=== PATIENT | female | born 1985 | race Caucasian/White ===

== ENCOUNTER → 2016-11-09 | Outpatient (REF) | payer OTHER ==
[2016-11-09 14:56] LABS: ALBUMIN/GLOBULIN RATIO 1.33 (1.00-1.93); ALKALINE PHOSPHATASE 34 U/L (45-117); ALT/SGPT 28 U/L (12-78); ANION GAP 10 MEQ/L (8-16); AST/SGOT 11 U/L (15-37); BILIRUBIN,TOTAL 0.2 MG/DL (0.2-1.0); BLOOD UREA NITROGEN 10 MG/DL (7-18); CARBON DIOXIDE LEVEL 25 MEQ/L (21-32); CHLORIDE LEVEL 105 MEQ/L (98-107); CREATININE FOR GFR 0.58 MG/DL (0.55-1.02); FREE T4 0.79 NG/DL (0.76-1.46); GLOMERULAR FILTRATION RATE > 60.0 (>60); GLUCOSE, FASTING 96 MG/DL (70-105); POTASSIUM SERUM 4.7 MEQ/L (3.5-5.1); SODIUM LEVEL 140 MEQ/L (136-145)
== END ==
LOC: M SFHCPLAZ 11-03 09:33
PROVIDERS: ATTEND Nurse Practitioner Family
DX: R00.2 Palpitations (principal)

== ENCOUNTER → 2016-11-09 | Outpatient (CLI) | payer OTHER | LOC: M SMT 10:59 | PROVIDERS: ATTEND Advanced Practice Midwife | DX: O02.1 Missed abortion (principal) ==

== ENCOUNTER → 2016-11-19 | Outpatient (CLI) | payer OTHER | LOC: M SMT 15:47 | PROVIDERS: ATTEND Advanced Practice Midwife | DX: O02.1 Missed abortion (principal) ==

== ENCOUNTER → 2016-11-26 | Outpatient (CLI) | payer OTHER | LOC: M SMT 15:00 | PROVIDERS: ATTEND Advanced Practice Midwife | DX: O02.1 Missed abortion (principal) ==

== ENCOUNTER → 2016-11-26 | Outpatient (REF) | payer OTHER | LOC: M SFHCPLAZ 08:52 | PROVIDERS: ATTEND Nurse Practitioner Family | DX: R00.2 Palpitations (principal); Z53.9 Procedure and treatment not carried out, unspecified reason ==

== ENCOUNTER → 2016-12-03 | Outpatient (CLI) | payer OTHER | LOC: M SMT 08:12 | PROVIDERS: ATTEND Advanced Practice Midwife | DX: O02.1 Missed abortion (principal) ==

== ENCOUNTER → 2016-12-17 | Outpatient (REF) | payer OTHER | LOC: M LAB REF 16:56 | PROVIDERS: ATTEND Specialist | DX: Z11.51 Encounter for screening for human papillomavirus (HPV) (principal); R87.610 Atypical squamous cells of undetermined significance on cytologic smear of cervix (ASC-US) ==

== ENCOUNTER 2017-10-03 22:22 | Emergency (ER) | payer OTHER ==
[~2017-10-03] VITALS: Ht 154.9 cm; Wt 82.7 kg
[2017-10-03] MEDS ORDERED: LEXA1TAB PO (22:40)
[2017-10-03] MEDS ORDERED: XANA0.5T PO (22:40)
[2017-10-04 00:09] LABS: CONTROL LINE UCG INT CTR LINE PRESENT
[2017-10-04] MEDS ORDERED: NS 1,000 ML IV ONE (00:45)
[2017-10-04] MEDS ORDERED: KETOROLAC 30 MG/ML VIAL (J1885) IV ONE (00:45)
[2017-10-04 01:12] LABS: BASO % 0.3 % (0.0-1.0); EOS # 0.3 10^3/uL (0.0-0.50); EOS % 2.7 % (0.0-3.0); IMMATURE GRANULOCYTE % 0.3 % (0-0); LYMPH % 47.6 % (24.0-44.0); MEAN CORPUSCULAR HEMOGLOBIN 29.8 pg (27.0-33.0); MEAN CORPUSCULAR HGB CONC 34.1 g/dl (32.0-36.5); MEAN CORPUSCULAR VOLUME 87.4 fl (80.0-96.0); MONO # 0.6 10^3/uL (0.0-0.8); MONO % 6.3 % (0.0-5.0); NEUTROPHILS # 4.2 10^3/uL (1.8-7.7); NEUTROPHILS % 42.8 % (36.0-66.0); PLATELET COUNT, AUTOMATED 278 10^3/uL (150-450); RED CELL DISTRIBUTION WIDTH 11.7 % (11.5-14.5); WHITE BLOOD COUNT 9.8 10^3/uL (4.0-10.0)
[2017-10-04 01:16] LABS: LYMPH # 4.7 10^3/uL (1.5-4.5)
[2017-10-04 01:32] LABS: ALBUMIN/GLOBULIN RATIO 1.18 (1.00-1.93); ALKALINE PHOSPHATASE 35 U/L (45-117); ALT/SGPT 19 U/L (12-78); ANION GAP 4 MEQ/L (8-16); AST/SGOT 11 U/L (7-37); BILIRUBIN,DIRECT < 0.1 MG/DL (0.0-0.2); BILIRUBIN,TOTAL 0.3 MG/DL (0.2-1.0); BLOOD UREA NITROGEN 9 MG/DL (7-18); CALCIUM LEVEL 9.6 MG/DL (8.5-10.1); CARBON DIOXIDE LEVEL 32 MEQ/L (21-32); CHLORIDE LEVEL 102 MEQ/L (98-107); CREATININE FOR GFR 0.55 MG/DL (0.55-1.02); GLOMERULAR FILTRATION RATE > 60.0 (>60); GLUCOSE, FASTING 77 MG/DL (70-105); POTASSIUM SERUM 3.9 MEQ/L (3.5-5.1); SODIUM LEVEL 138 MEQ/L (136-145); TOTAL PROTEIN 7.4 GM/DL (6.4-8.2)
[2017-10-04 01:48] VITALS: BP 122/74
--- NOTE | 2017-10-04 05:47 | ECGEPIP ---
Stationary ECG Study [facility] - ED Test Date: 2017-10-03 Pat Name: KELSEA ESTRADALAND Department: Room: - Gender: F [employer] Service Technician: rn : 1985 Requested By: MARIA GUADALUPE Toney Order Number: [id number] Reading MD: Tony Prasad Measurements Intervals Bradley Rate: 102 P: 38 VA: 184 QRS: 60 QRSD: 84 T: 42 QT: 338 QTc: 442 Interpretive Statements SINUS TACHYCARDIA NO PRIORS FOR COMPARISON Electronically Signed On 10-04-2017 5:47:31 EST by Tony Prasad
== END 2017-10-04 02:14 | disposition left against medical advice (07) ==
LOC: M ED 22:22
DX: R10.2 Pelvic and perineal pain (principal); R35.0 Frequency of micturition; R00.0 Tachycardia, unspecified; F17.210 Nicotine dependence, cigarettes, uncomplicated; Z79.899 Other long term (current) drug therapy
CPT/HCPCS: 80048; 80076; 81001; 83690; 84703; 85025; 87086; 93000; 96374; 99284; J1885

== ENCOUNTER → 2017-10-05 | Outpatient (REF) | payer OTHER ==
[~2017-10-05] MED LIST: LEXA1TAB PO; XANA0.5T PO
== END ==
LOC: M SFHCLERA 18:34
PROVIDERS: ATTEND Physician Assistant
DX: R10.2 Pelvic and perineal pain (principal)

== ENCOUNTER → 2017-10-05 | Outpatient (CLI) | payer OTHER ==
--- NOTE | 2017-10-05 19:19 | REP ---
Clinical: Suprapubic abdominal pain. Technique: Two supine views of the abdomen and pelvis. Findings: Nonspecific bowel gas pattern. Moderate fecal stasis and constipation suggested and correlation is recommended. No organomegaly. Skeletal structures are normal for age. Impression: Moderate fecal stasis and possible constipation. Signed by Venkat Melissa MD 10/05/2017 07:10 P
== END ==
LOC: M LRY 18:35
PROVIDERS: ATTEND Physician Assistant
DX: R10.2 Pelvic and perineal pain (principal)

== ENCOUNTER → 2017-11-23 | Outpatient (CLI) | payer OTHER ==
[2017-11-23 11:24] LABS: BASO % 0.3 % (0.0-1.0); EOS # 0.2 10^3/uL (0.0-0.50); HEMATOCRIT 38.3 % (36.0-47.0); HEMOGLOBIN 12.9 g/dl (12.0-16.0); IMMATURE GRANULOCYTE % 0.3 % (0-0); LYMPH # 2.4 10^3/uL (1.5-4.5); LYMPH % 29.7 % (24.0-44.0); MEAN CORPUSCULAR HEMOGLOBIN 29.2 pg (27.0-33.0); MEAN CORPUSCULAR HGB CONC 33.7 g/dl (32.0-36.5); MEAN CORPUSCULAR VOLUME 86.7 fl (80.0-96.0); MONO # 0.4 10^3/uL (0.0-0.8); MONO % 4.7 % (0.0-5.0); PLATELET COUNT, AUTOMATED 314 10^3/uL (150-450); RED BLOOD COUNT 4.42 10^6/uL (4.00-5.40); RED CELL DISTRIBUTION WIDTH 12.1 % (11.5-14.5); WHITE BLOOD COUNT 7.9 10^3/uL (4.0-10.0)
[2017-11-23 12:01] LABS: HBsAg Prenatal NEGATIVE (NEGATIVE); RUBELLA IgG QUALITATIVE IMMUNE (IMMUNE)
[2017-11-23 12:29] LABS: HEPATITIS C VIRUS ABY INDEX 0.1 INDEX (<0.8)
[2017-11-23 12:29] LABS: HIV 1&2 SCREEN CENTAUR NEGATIVE (NEGATIVE)
[2017-11-23 15:56] LABS: CHLAMYDIA DNA AMPLIFICATION NEGATIVE (NEGATIVE); GC DNA AMPLIFICATION NEGATIVE (NEGATIVE)
== END ==
LOC: M LRY 08:25
DX: Z36.89 Encounter for other specified antenatal screening (principal); Z3A.08 8 weeks gestation of pregnancy
CPT/HCPCS: 86762

== ENCOUNTER → 2018-01-02 | Outpatient (REF) | payer OTHER | LOC: M LAB REF 12:52 | DX: Z34.82 Encounter for supervision of other normal pregnancy, second trimester (principal) ==

== ENCOUNTER → 2018-01-23 | Outpatient (CLI) | payer OTHER | LOC: M RAD 08:47 | DX: Z34.82 Encounter for supervision of other normal pregnancy, second trimester (principal) | CPT/HCPCS: 76811 ==

== ENCOUNTER → 2018-02-07 | Outpatient (CLI) | payer OTHER ==
[~2018-02-07] MED LIST changes: +CONRAY-43 43% 50ML VIAL (Q9960) As Ordered; -LEXA1TAB PO; +PROHANCE 279.3MG/ML 5ML VIAL (A9576) As Ordered; -XANA0.5T PO
== END ==
LOC: M RAD 16:43
DX: Z36.9 Encounter for antenatal screening, unspecified (principal); Z3A.20 20 weeks gestation of pregnancy
CPT/HCPCS: Q9960

== ENCOUNTER → 2018-03-16 | Outpatient (CLI) | payer OTHER ==
[2018-03-16 14:02] LABS: HEMATOCRIT 37.2 % (36.0-47.0); HEMOGLOBIN 12.3 g/dl (12.0-15.5); MEAN CORPUSCULAR HEMOGLOBIN 30.1 pg (27.0-33.0); MEAN CORPUSCULAR HGB CONC 33.1 g/dl (32.0-36.5); MEAN CORPUSCULAR VOLUME 91.2 fl (80.0-96.0); PLATELET COUNT, AUTOMATED 223 10^3/uL (150-450); RED BLOOD COUNT 4.08 10^6/uL (4.00-5.40); RED CELL DISTRIBUTION WIDTH 13.2 % (11.5-14.5); WHITE BLOOD COUNT 10.5 10^3/uL (4.0-10.0)
[2018-03-16 14:28] LABS: GLUCOSE CHALLENGE TEST 1 HOUR 120 MG/DL (LESS THAN 140)
[2018-03-17 08:53] LABS: RH ONLY RHOGAM 1 1
== END ==
LOC: M SMT 08:19
DX: Z34.82 Encounter for supervision of other normal pregnancy, second trimester (principal)
CPT/HCPCS: 82950

== ENCOUNTER → 2018-04-20 | Outpatient (REF) | payer OTHER | LOC: M SFHCPLAZ 14:14 | DX: R06.09 Other forms of dyspnea (principal) ==

== ENCOUNTER → 2018-05-16 | Outpatient (CLI) | payer OTHER | LOC: M LRY 08:28 | DX: Z34.83 Encounter for supervision of other normal pregnancy, third trimester (principal); Z3A.35 35 weeks gestation of pregnancy | CPT/HCPCS: 76811 ==

== ENCOUNTER → 2018-05-30 | Outpatient (REF) | payer OTHER | LOC: M LAB REF 12:53 | DX: Z34.83 Encounter for supervision of other normal pregnancy, third trimester (principal); Z3A.00 Weeks of gestation of pregnancy not specified | CPT/HCPCS: 87081 ==

== ENCOUNTER 2018-06-08 02:56 | Outpatient (CLI) | payer OTHER | END 2018-06-08 05:53 | disposition home or self-care (01) | LOC: M LDO 02:56 | DX: O47.1 False labor at or after 37 completed weeks of gestation (principal); Z3A.38 38 weeks gestation of pregnancy | CPT/HCPCS: 59025 ==

== ENCOUNTER → 2018-06-13 | Outpatient (CLI) | payer OTHER | LOC: M RAD 13:20 | DX: O26.843 Uterine size-date discrepancy, third trimester (principal); Z3A.38 38 weeks gestation of pregnancy | CPT/HCPCS: 76819 ==

== ENCOUNTER 2018-06-17 15:22 | Outpatient (CLI) | payer OTHER ==
[2018-06-17 16:32] LABS: TOTAL PROTEIN,RANDOM URINE < 5.0 MG/DL (0.0-12.0)
[2018-06-17 16:32] LABS: CREATININE,RANDOM URINE < 13.0 MG/DL
[2018-06-17 16:47] LABS: HEMATOCRIT 36.5 % (36.0-47.0); HEMOGLOBIN 12.1 g/dl (12.0-15.5); MEAN CORPUSCULAR HEMOGLOBIN 28.3 pg (27.0-33.0); MEAN CORPUSCULAR HGB CONC 33.2 g/dl (32.0-36.5); MEAN CORPUSCULAR VOLUME 85.3 fl (80.0-96.0); PLATELET COUNT, AUTOMATED 218 10^3/uL (150-450); RED BLOOD COUNT 4.28 10^6/uL (4.00-5.40); RED CELL DISTRIBUTION WIDTH 13.5 % (11.5-14.5); WHITE BLOOD COUNT 9.3 10^3/uL (4.0-10.0)
[2018-06-17 17:06] LABS: ALT/SGPT 14 U/L (12-78); AST/SGOT 11 U/L (7-37); BILIRUBIN,TOTAL 0.2 MG/DL (0.2-1.0); CREATININE FOR GFR 0.55 MG/DL (0.55-1.30); GLOMERULAR FILTRATION RATE > 60.0 (>60); LDH LACTATE DEHYDROGENASE 166 U/L (84-246); URIC ACID 4.9 MG/DL (2.6-6.0)
== END 2018-06-17 17:30 | disposition home or self-care (01) ==
LOC: M LDO 15:22
DX: O26.893 Other specified pregnancy related conditions, third trimester (principal); R60.0 Localized edema; R03.0 Elevated blood-pressure reading, without diagnosis of hypertension; Z3A.39 39 weeks gestation of pregnancy
CPT/HCPCS: 59025

== ENCOUNTER 2018-06-20 17:05 | Inpatient (IN) | payer OTHER ==
[2018-06-20] MEDS: miSOPROStol 50 MCG 1/2 TAB (S0191) SL ×2 (18:15→22:56)
[2018-06-20 18:16] LABS: HEMATOCRIT 35.3 % (36.0-47.0); HEMOGLOBIN 11.8 g/dl (12.0-15.5); MEAN CORPUSCULAR HEMOGLOBIN 28.2 pg (27.0-33.0); MEAN CORPUSCULAR HGB CONC 33.4 g/dl (32.0-36.5); MEAN CORPUSCULAR VOLUME 84.4 fl (80.0-96.0); PLATELET COUNT, AUTOMATED 245 10^3/uL (150-450); RED BLOOD COUNT 4.18 10^6/uL (4.00-5.40); RED CELL DISTRIBUTION WIDTH 13.5 % (11.5-14.5); WHITE BLOOD COUNT 10.3 10^3/uL (4.0-10.0)
[2018-06-20] MEDS: LR 1,000 ML IV (18:16)
[2018-06-21] MEDS: PROMETHAZINE INJ 25 MG/ML VIAL (J2550) IV (03:12)
[2018-06-21] MEDS: LR 1,000 ML IV ×2 (03:13→14:25)
[2018-06-21] MEDS: BUTORPHANOL 2 MG/ML INJ (J0595) IV (03:13)
[2018-06-21] MEDS: miSOPROStol 50 MCG 1/2 TAB (S0191) SL ×2 (03:14→09:58)
[2018-06-21] MEDS: ACETAMINOPHEN 500 MG TAB PO (10:34)
[2018-06-21] MEDS: LACTATED RINGER'S 1000 ML IV (12:05)
[2018-06-21] MEDS ORDERED: FENTANYL 2MCG/ML ROPIVACAINE 0.2% IN 0.9% NACL 200ML IVBAG As Ordered (12:21)
[2018-06-21] MEDS ORDERED: LACTATED RINGER'S 1000 ML IV (14:00)
[2018-06-21] MEDS ORDERED: ePHEDrine SULFATE 25 MG/5 ML(5MG/ML) SYRINGE IV (14:00)
[2018-06-21] MEDS ORDERED: FENTANYL/ROPIVACAINE/NACL BAG 200 ML EPIDURAL (14:00)
[2018-06-21] MEDS ORDERED: EPIDURAL/PCA KEYS XX (14:00)
[2018-06-21] MEDS ORDERED: diphenhydrAMINE INJ 50MG/ML VIAL (J1200) IV (14:00)
[2018-06-21] MEDS ORDERED: EPIDURAL COMMENT XX (14:00)
[2018-06-21] MEDS ORDERED: NALOXONE INJ 0.4 MG/1 ML VIAL (J2310) IV (14:00)
[2018-06-21] MEDS ORDERED: REFRIGERATOR IV KEYS XX (14:00)
[2018-06-21] MEDS: OXYTOCIN DRIP 30 UNITS in APPROPRIATE DILUENT 1 EA IV ×2 (14:13→22:41)
[2018-06-21] MEDS: ONDANSETRON 4MG/2ML VIAL (J2405) IV (18:23)
[2018-06-21] MEDS ORDERED: METHYLERGONOVINE MALEATE 0.2 MG TAB PO (21:15)
[2018-06-21] MEDS ORDERED: MEASLES,MUMPS,RUBELLA VACCINE INJ (MMR-II) (90707) SC (21:15)
[2018-06-21] MEDS ORDERED: ONDANSETRON 4MG/2ML VIAL (J2405) IV (21:15)
[2018-06-21] MEDS ORDERED: DIBUCAINE 1% OINTMENT 30GM TOP (21:15)
[2018-06-21] MEDS: IBUPROFEN 800 MG TAB PO (23:17)
[2018-06-22] MEDS: ACETAMINOPHEN 500 MG TAB PO ×3 (04:11→20:16)
[2018-06-22] MEDS: PRENATAL VITAMINS CHEWABLE TABLET PO (08:32)
[2018-06-22] MEDS: IBUPROFEN 800 MG TAB PO ×2 (08:32→18:48)
[2018-06-22 11:41] LABS: FETAL SCREEN PROF. 1 1
[2018-06-22] MEDS: RHOGAM 300 MCG (1500 IU) INJ (J2790) IM (12:19)
[2018-06-22] MEDS: DOCUSATE SODIUM 100 MG CAP PO (20:16)
[2018-06-23] MEDS: IBUPROFEN 800 MG TAB PO (04:50)
[2018-06-23] MEDS: PRENATAL VITAMINS CHEWABLE TABLET PO (08:43)
[2018-06-23] MEDS: ACETAMINOPHEN 500 MG TAB PO (08:44)
== END 2018-06-23 10:55 | disposition home or self-care (01) | DRG 560 ==
LOC: M LDI 17:05 → M OBS 06-21 22:50
PROVIDERS: Obstetrics & Gynecology
PROC: 10E0XZZ Delivery of Products of Conception, External Approach (ICD-10-PCS; principal; 2018-06-21)
DX: O80 Encounter for full-term uncomplicated delivery (principal); Z37.0 Single live birth; Z3A.39 39 weeks gestation of pregnancy

== ENCOUNTER → 2018-11-04 | Outpatient (REF) | payer OTHER ==
[~2018-11-04] MED LIST changes: -CONRAY-43 43% 50ML VIAL (Q9960) As Ordered; +IBUP-1022 PO; +LEXA1TAB PO; +MAPA500T2 PO; +PREN1CHW PO; -PROHANCE 279.3MG/ML 5ML VIAL (A9576) As Ordered; +XANA0.5T PO
== END ==
LOC: M SFHCLERA 13:22
PROVIDERS: ATTEND Physician Assistant
DX: N89.8 Other specified noninflammatory disorders of vagina (principal)

== ENCOUNTER → 2018-11-21 | Outpatient (CLI) | payer OTHER ==
--- NOTE | 2018-11-22 04:32 | REP ---
Clinical: IUD placement . Technique: Transabdominal pelvic ultrasound followed by transvaginal examination for better evaluation of the endometrium and adnexa with color Doppler evaluation of the ovaries. Findings: Bladder is unremarkable and measures 3.6 x 2.2 x 6.3 cm . Normal anteverted uterus measures 8.5 x 4.1 x 6.2 cm . The endometrial complex measures 13 mm thickness. No discrete uterine or endometrial abnormalities are appreciated. IUD identified in satisfactory position. Bilateral ovaries are normal in appearance and vascularity without evidence for torsion. Right ovary measures 3.4 x 2.8 x 3.0 cm ; R I = 0.51 . Left ovary measures 4.2 x 3.2 x 3.1 cm ; R I = 0.56 . No pelvic fluid or adnexal mass lesions . Impression: 1. Normal pelvic ultrasound. IUD in satisfactory position. Electronically Signed by Venkat Melissa MD 11/22/2018 04:23 A
== END ==
LOC: M RAD 17:25
PROVIDERS: ATTEND Specialist
DX: N93.9 Abnormal uterine and vaginal bleeding, unspecified (principal); Z97.5 Presence of (intrauterine) contraceptive device

== ENCOUNTER → 2018-12-14 | Outpatient (REF) | payer OTHER | LOC: M SFHCLERA 10:03 | PROVIDERS: ATTEND Physician Assistant | DX: N39.0 Urinary tract infection, site not specified (principal) ==

== ENCOUNTER → 2019-03-19 | Outpatient (REF) | payer OTHER ==
[2019-03-19 20:41] LABS: BASO % 0.3 % (0.0-1.0); EOS # 0.3 10^3/uL (0.0-0.50); EOS % 2.7 % (0.0-3.0); HEMATOCRIT 47.1 % (36.0-47.0); HEMOGLOBIN 15.5 g/dl (12.0-15.5); LYMPH # 3.2 10^3/uL (1.5-4.5); LYMPH % 34.5 % (24.0-44.0); MEAN CORPUSCULAR HEMOGLOBIN 29.3 pg (27.0-33.0); MEAN CORPUSCULAR HGB CONC 32.9 g/dl (32.0-36.5); MONO # 0.6 10^3/uL (0.0-0.8); MONO % 6.9 % (0.0-5.0); NEUTROPHILS % 55.2 % (36.0-66.0); PLATELET COUNT, AUTOMATED 314 10^3/uL (150-450); RED BLOOD COUNT 5.29 10^6/uL (4.00-5.40); WHITE BLOOD COUNT 9.1 10^3/uL (4.0-10.0)
[2019-03-19 20:54] LABS: ALBUMIN 4.5 GM/DL (3.2-5.2); ALT/SGPT 25 U/L (12-78); BILIRUBIN,TOTAL 0.2 MG/DL (0.2-1.0); BLOOD UREA NITROGEN 8 MG/DL (7-18); CALCIUM LEVEL 9.9 MG/DL (8.5-10.1); CARBON DIOXIDE LEVEL 27 MEQ/L (21-32); CHLORIDE LEVEL 107 MEQ/L (98-107); CREATININE FOR GFR 0.64 MG/DL (0.55-1.30); GLOMERULAR FILTRATION RATE > 60.0 (>60); GLUCOSE, FASTING 95 MG/DL (70-100); POTASSIUM SERUM 4.5 MEQ/L (3.5-5.1); SODIUM LEVEL 141 MEQ/L (136-145); TOTAL PROTEIN 7.7 GM/DL (6.4-8.2)
== END ==
LOC: M SFHCLERA 15:09
PROVIDERS: ATTEND Nurse Practitioner Family
DX: F41.1 Generalized anxiety disorder (principal)

== ENCOUNTER → 2019-05-24 | Outpatient (REF) | payer OTHER ==
[2019-05-29 14:41] LABS: HPV HYBRID CAPTURE II Negative (Negative)
== END ==
LOC: M LAB REF 13:16
PROVIDERS: ATTEND Advanced Practice Midwife
DX: Z12.4 Encounter for screening for malignant neoplasm of cervix (principal); B37.3 Candidiasis of vulva and vagina

== ENCOUNTER 2019-07-20 18:35 | Emergency (ER) | payer BC, OTHER ==
[~2019-07-20] VITALS: Ht 154.9 cm; Wt 92.7 kg
[2019-07-20 18:35] VITALS: BP 128/75
[2019-07-20] MEDS ORDERED: KETO10TAB PO (19:36)
[2019-07-20] MEDS ORDERED: KETOROLAC TROMETHAMINE 10 MG TAB PO ONE (19:45)
--- NOTE | 2019-07-20 19:50 | REP ---
HISTORY: Trauma. FINDINGS: The joint spaces are symmetric and relatively well maintained. There is no evidence of acute fracture or destructive osseous lesion. IMPRESSION: Negative. Electronically Signed by Jose Matos DO 07/21/2019 09:46 A
== END 2019-07-20 19:43 | disposition home or self-care (01) ==
LOC: M ED 18:35
DX: M79.672 Pain in left foot (principal)

== ENCOUNTER 2019-10-19 10:32 | Day surgery (SDC) | payer BC ==
[~2019-10-19] VITALS: Ht 154.9 cm; Wt 94.3 kg
[~2019-10-19 10:32] MED LIST changes: +ACETAMINOPHEN 1000MG 100ML IV BTL (OFIRMEV) (J0131 PER 10MG) As Ordered ONE; +KETO10TAB PO; +KETOROLAC 60 MG/2 ML VIAL (J1885) As Ordered ONE; +LEXA1TAB2 PO; +LIDOCAINE 2% INJ 100 MG/5 ML SDV (FOR ANES.) As Ordered ONE; +LR 1,000 ML IV ONE; +MIDAZOLAM INJ 2 MG/2 ML VIAL (J2250) As Ordered ONE; +MIRE1IUD IU; +ONDANSETRON 4MG/2ML VIAL (J2405) As Ordered ONE; +PROPOFOL 200 MG/20 ML VIAL As Ordered ONE; +ROCURONIUM BROMIDE 50 MG/5 ML VIAL As Ordered ONE; +SUGAMMADEX SODIUM 500 MG/5 ML VIAL (BRIDION) As Ordered ONE; +dexameTHASONE 4 MG/ML 1ML VIAL (J1100) As Ordered ONE; +fentaNYL 100 MCG/2 ML INJECTION (J3010) As Ordered ONE
[2019-10-19 11:12] LABS: HEMATOCRIT 48.4 % (36.0-47.0); HEMOGLOBIN 16.4 g/dl (12.0-15.5); MEAN CORPUSCULAR HEMOGLOBIN 29.5 pg (27.0-33.0); MEAN CORPUSCULAR HGB CONC 33.9 g/dl (32.0-36.5); MEAN CORPUSCULAR VOLUME 87.2 fl (80.0-96.0); PLATELET COUNT, AUTOMATED 283 10^3/uL (150-450); RED BLOOD COUNT 5.55 10^6/uL (4.00-5.40); WHITE BLOOD COUNT 10.6 10^3/uL (4.0-10.0)
[2019-10-19 11:43] LABS: HCG, SERUM QUALITATIVE NEGATIVE (NEGATIVE)
[2019-10-19] MEDS ORDERED: BUPIVACAINE HCL 0.25% 30 ML VIAL As Ordered ONE (13:16)
[2019-10-19] MEDS ORDERED: IBUP80TA PO (13:55)
[2019-10-19] MEDS ORDERED: OXYC1TAB23 PO (13:56)
[2019-10-19] MEDS ORDERED: fentaNYL 100 MCG/2 ML INJECTION (J3010) As Ordered ONE (14:08)
[2019-10-19] MEDS: fentaNYL 100 MCG/2 ML INJECTION (J3010) IV PRN ×4 (14:10→14:35)
[2019-10-19] MEDS ORDERED: ONDANSETRON 4MG/2ML VIAL (J2405) IV PRN (14:30)
[2019-10-19] MEDS ORDERED: oxyCODONE 5MG TAB PO PRN (14:30)
[2019-10-19] MEDS ORDERED: LR 1,000 ML IV SCH ×2 (14:30)
[2019-10-19 15:15] VITALS: BP 120/83
== END 2019-10-19 15:43 | disposition home or self-care (01) ==
LOC: M SDC 10:32
PROVIDERS: ATTEND Obstetrics & Gynecology
DX: Z30.2 Encounter for sterilization (principal); Z30.432 Encounter for removal of intrauterine contraceptive device; F41.9 Anxiety disorder, unspecified; Z79.899 Other long term (current) drug therapy
CPT/HCPCS: 36415; 58301; 58661; 84703; 85027; 86850; 86900; 86901; 88302; J0131; J1100; J1885; J2250; J2405; J3010

== ENCOUNTER → 2019-11-18 | Outpatient (REF) | payer BC ==
[~2019-11-18] MED LIST changes: -ACETAMINOPHEN 1000MG 100ML IV BTL (OFIRMEV) (J0131 PER 10MG) As Ordered ONE; +IBUP80TA PO; -KETOROLAC 60 MG/2 ML VIAL (J1885) As Ordered ONE; -LIDOCAINE 2% INJ 100 MG/5 ML SDV (FOR ANES.) As Ordered ONE; -LR 1,000 ML IV ONE; -MIDAZOLAM INJ 2 MG/2 ML VIAL (J2250) As Ordered ONE; -ONDANSETRON 4MG/2ML VIAL (J2405) As Ordered ONE; +OXYC1TAB23 PO; -PROPOFOL 200 MG/20 ML VIAL As Ordered ONE; -ROCURONIUM BROMIDE 50 MG/5 ML VIAL As Ordered ONE; -SUGAMMADEX SODIUM 500 MG/5 ML VIAL (BRIDION) As Ordered ONE; -dexameTHASONE 4 MG/ML 1ML VIAL (J1100) As Ordered ONE; -fentaNYL 100 MCG/2 ML INJECTION (J3010) As Ordered ONE
== END ==
LOC: M SFHCLERA 09:47
PROVIDERS: ATTEND Physician Assistant
DX: R30.0 Dysuria (principal)

== ENCOUNTER 2020-10-08 17:05 | Emergency (ER) | payer BC ==
[~2020-10-08] VITALS: Ht 154.9 cm; Wt 101.3 kg
[2020-10-08] MEDS ORDERED: NORC1TAB7 PO (19:12)
[2020-10-08] MEDS ORDERED: AUGM875T28 PO (19:12)
[2020-10-08] MEDS ORDERED: NORCO, ANEXSIA 5/325MG TABLET (HYDROcodone/ACETAMINOPHEN) PO ONE (19:15)
[2020-10-08] MEDS ORDERED: AUGMENTIN 875 MG TAB PO ONE (19:15)
[2020-10-08 19:24] VITALS: BP 133/76
== END 2020-10-08 19:26 | disposition home or self-care (01) ==
LOC: M ED 17:05
DX: K02.9 Dental caries, unspecified (principal)

== ENCOUNTER 2021-01-03 16:42 | Emergency (ER) | payer BC ==
[~2021-01-03] VITALS: Ht 154.9 cm; Wt 102.6 kg
[~2021-01-03 16:42] MED LIST changes: +AUGM875T28 PO; +NORC1TAB7 PO
[2021-01-03 16:43] VITALS: BP 140/98
[2021-01-03] MEDS ORDERED: HYDR-3713 PO (17:23)
== END 2021-01-03 17:37 | disposition home or self-care (01) ==
LOC: M ED 16:42
DX: K08.89 Other specified disorders of teeth and supporting structures (principal); R51.9 Headache, unspecified; Z79.899 Other long term (current) drug therapy

== ENCOUNTER → 2021-01-05 | Outpatient (CLI) | payer BC ==
[~2021-01-05] MED LIST changes: +HYDR-3713 PO
--- NOTE | 2021-01-05 16:12 | REP ---
INDICATION: LEFT KNEE PAIN. COMPARISON: None. TECHNIQUE: AP, lateral, tunnel and sunrise views of the left knee FINDINGS: Osseous structures, joint spaces, and surrounding soft tissues are normal. No evidence for acute or healed injury. No overt arthritic changes. No obvious effusion. IMPRESSION: Age-appropriate left knee radiographs. <Electronically signed by Venkat Melissa > 01/05/21 [id number]
== END ==
LOC: M SOG 08:22
PROVIDERS: ATTEND Orthopaedic Surgery Sports Medicine
DX: M25.562 Pain in left knee (principal)

== ENCOUNTER → 2021-06-13 | Outpatient (REF) | payer BC ==
[~2021-06-13] MED LIST changes: +ACET-683 PO; +IBUP-1114 PO; +LIDO2SOL17 SSP
== END ==
LOC: M LAB REF 18:59
PROVIDERS: ATTEND Physician Assistant
DX: R30.0 Dysuria (principal)

== ENCOUNTER 2021-07-04 10:36 | Emergency (ER) | payer BC ==
[~2021-07-04] VITALS: Ht 154.9 cm; Wt 98.3 kg
[~2021-07-04 10:36] MED LIST changes: -ACET-683 PO; -IBUP-1114 PO; -LIDO2SOL17 SSP
[2021-07-04] MEDS ORDERED: ACET-683 PO (10:57)
[2021-07-04] MEDS ORDERED: IBUP-1114 PO (10:57)
[2021-07-04] MEDS ORDERED: AUGM875T28 PO (12:50)
[2021-07-04] MEDS ORDERED: LIDO2SOL17 SSP (12:50)
[2021-07-04] MEDS ORDERED: HYDR-3713 PO (12:50)
[2021-07-04 12:59] VITALS: BP 140/76
== END 2021-07-04 13:04 | disposition home or self-care (01) ==
LOC: M ED 10:36
DX: K08.531 Fractured dental restorative material with loss of material (principal); R51.9 Headache, unspecified; F41.9 Anxiety disorder, unspecified; Z79.899 Other long term (current) drug therapy

== ENCOUNTER 2021-11-07 04:54 | Emergency (ER) | payer BC ==
[~2021-11-07] VITALS: Ht 154.9 cm; Wt 200.0 kg
[~2021-11-07 04:54] MED LIST changes: +ACET-683 PO; +IBUP-1114 PO; +LIDO2SOL17 SSP
[2021-11-07] MEDS ORDERED: AUGM875T28 PO (07:59)
[2021-11-07 08:09] VITALS: BP 126/71
== END 2021-11-07 08:11 | disposition home or self-care (01) ==
LOC: M ED 04:54
DX: K02.9 Dental caries, unspecified (principal); K03.81 Cracked tooth; F41.9 Anxiety disorder, unspecified; Z79.899 Other long term (current) drug therapy

== ENCOUNTER → 2021-11-26 | Outpatient (REF) | payer BC | LOC: M SFHCWAGY 15:12 | PROVIDERS: ATTEND Obstetrics & Gynecology | DX: Z12.4 Encounter for screening for malignant neoplasm of cervix (principal) ==

== ENCOUNTER → 2022-01-20 | Outpatient (REF) | payer BC ==
[2022-01-21 13:50] LABS: GC DNA AMPLIFICATION NEGATIVE (NEGATIVE)
== END ==
LOC: M SFHCPLAZ 10:01
PROVIDERS: ATTEND Physician Assistant
DX: R30.0 Dysuria (principal)